=== PATIENT | male | born 1955 | race Asian ===

== ENCOUNTER 2017-09-12 16:09 | Emergency (ER) | payer MEDICARE, MEDICAID, SELFPAY ==
[2017-09-04 18:44] VITALS: TEMP 36.7
[2017-09-12 16:13] VITALS: BP 138/84; PULSE 110; RESP 18; TEMP 36.7; O2SAT 93; BMI 28.3
--- NOTE | 2017-09-12 16:50 | PC.NURSE ---
pt speaks mexican, daughter at bs. translating. reports, pt seen last week for migraine. pt s/p lumbar surgery past december, has rx for metocarbimol. till today pt with lower legs spasm , pt took 2 pills at 1246, then shortly after taking the medication, daughter described, seizure for 2 minutes on arrival pt alert and awake, now reports, frontal heaviness also back of neck, eyes heaviness, tiredness. denies nausea or vomiting. at time of event pt with blurry vision.
--- NOTE | 2017-09-12 16:59 | PC.NURSE ---
pt reports, left knee down to foot always has been numb since surgery. right foot with numbness. noted pt able to wiggle bilateral foot.
[2017-09-12 17:08] VITALS: BP 120/73; PULSE 97; RESP 24; O2SAT 94
[2017-09-12 18:16] VITALS: BP 122/73; PULSE 91; RESP 26; O2SAT 93
[2017-09-12 19:03] VITALS: BP 123/73; PULSE 97; RESP 16; O2SAT 95
--- NOTE | 2017-09-12 19:06 | DI.CT.S_ITS ---
PROCEDURE: CT HEAD/BRAIN WO CON INDICATIONS: seizure TECHNIQUE: Noncontrast 4.5 mm thick angled axial sections acquired from the foramen magnum to the vertex, with coronal and sagittal reformats. For radiation dose reduction, the following was used: automated exposure control, adjustment of mA and/or kV according to patient size. COMPARISON: None. FINDINGS: Image quality: Excellent. CSF spaces: Basal cisterns are patent. No extra-axial fluid collections. Ventricles are normal in size and shape. Brain: No midline shift. No intracranial masses or hemorrhage. Pepper-white matter interface is normal. Skull and face: Calvarium and visualized facial bones are intact, without suspicious lesions. Sinuses: Visualized sinuses and mastoids are clear. IMPRESSION: No acute intracranial findings. Dictated by: Barbara Bose M.D. on 09/12/2017 at 19:43 Approved by: Barbara Bose M.D. on 09/12/2017 at 19:46
--- NOTE | 2017-09-12 19:15 | ED_ITS ---
HPI - Seizure General Chief Complaint: Seizure Stated Complaint: SEIZURES History of Present Illness HPI Narrative: HPI 62-year-old male with history of lumbar pain status post surgery presents for evaluation of 2 seizure-like episodes that occurred at home. Patient reports that he has had headaches over last 3 to 4 days, was evaluated in this emergency department, had a unremarkable CT, tree with migraine cocktail, and discharged home with complete/near complete resolution of his headache. Today the patient felt mild discomfort (either headache versus low back pain, unclear ) and tried to methocarbamol that he had been prescribed from her prior back surgery. Sometime thereafter patient felt a spasming type pain in his leg was unable to bear weight, he then to the ground that had resolution of the spasm and continues to stay as normal. The patient was then witnessed by his daughter sometime (one hour?) later to become unresponsive for sitting on the edge of the bed, have diffuse tonic-clonic shaking of his extremities, head pastoring to the left, was unresponsive, minimally foaming/salivating, and fell to the side. The patient then rapidly regained consciousness but was confused for several minutes. Several hours later in the afternoon the patient's daughter heard a crashing sound to the ground and found her father slumped over his walker (which he uses due to baseline back pain and baseline - and unchanged - lower extremity weakness) unconscious on the floor again with mild salivation, the patient rapidly became conscious, was again anamnestic to events, and confused for several minutes. Patient and patient's daughter denies alcohol use , drug use, or further medications. M/S/F/SocHx notable for: please see HPI; remainder reviewed with patient and in chart. ROS: Negative constitutional, eye, cardiovascular, pulmonary, GI, , MSK, skin , neurologic, psychiatric, endocrine unless noted in the HPI. Exam Gen: Pleasant, non-toxic appearing, resting comfortably. HEENT: superficial abrasion below right chin, otherwise NC, AT, PEERL, EOMI. Resp: Clear to auscultation bilaterally, normal work of breathing, no accessory muscle usage. Card: Regular rate and rhythm with no murmurs, rubs, or gallops, extremities warm and well perfused. GI: Non-tender to palpation throughout all quadrants, no focal tenderness at McBurney's point, negative Beasley's sign, non-distended, no rebound or guarding. : No suprapubic tenderness to palpation. MSK: No visible deformities, strength and tone without visually appreciable deficit. No C, T, L spine tenderness palpation. Moving all extremities without appreciable deficit. Skin: Normal color with no visible lesions. Neuro: Gen AO x 3, no facial asymmetry, no gaze preference, no slurring of speech. Pupils equal and reactive, EOMI, no facial asymmetry, no nystagmus, phonation intact, SCM 5/5 bilaterally. Cerebellar: bilateral upper extremities without dysmetria. Psych: Mood and affect appropriate. Labs / Imaging: CT Head: pending. EKG: SR at [address]-segment elevations or depressions, T-wave inversions or new LBBB. CA interval 144msec, QTc 375msec, no delta waves, epsilon waves, coved or saddle ST-segment changes in leads V1-3, preseptal or inferior lead Q-waves, biphasic P-waves, or T-wave inversions; no LVH. Labs pending. MDM Previous chart, nursing note, labs, imaging, and vitals reviewed. A: 62-year-old male with history of lumbar pain status post surgery presents for evaluation of 2 seizure-like episodes that occurred at home. DDx & Evaluation: exam w/o evidence of meningitis, CT head pending, ekg without evidence of arrythmia. Labs and imaging pending. Patient care transferred to Dr. Shelton, the oncoming provider. Impression: suspected seizure. (please reference below for remainder of encounter information) Related Data Home Medications Medication Instructions Recorded Confirmed cyclobenzaprine 5 - 10 mg PO TID 09/12/17 09/12/17 ibuprofen 800 mg PO TID 09/12/17 09/12/17 methocarbamol 1 - 2 tab PO Q6H PRN 09/12/17 09/12/17 Allergies Allergy/AdvReac Type Severity Reaction Status Date / Time No Known Drug Allergies Allergy Verified 09/04/17 20:22 PFSH Social History Smoking Status: Never smoker Discharge Plan Departure Prescriptions: No Action cyclobenzaprine 5 mg tablet 5 - 10 mg PO TID RF: 0 ibuprofen 800 mg tablet 800 mg PO TID RF: 0 methocarbamol 500 mg Tablet 1 - 2 tab PO Q6H PRN (Reason: Muscle Spasm) RF: 0
[2017-09-12 20:00] VITALS: BP 131/76; PULSE 94; RESP 19; O2SAT 96
[2017-09-12 20:16] LABS: Add Manual Diff / Slide Review NO; Basophils Percent Auto 0.5 % (0-2); Hematocrit 42.3 % (41-53); Hemoglobin 14.7 g/dL (13.5-17.5); Lymphocytes Percent Auto 19.1 % (25-40); Mean Corpuscular HGB Conc 34.7 % (30-36); Mean Corpuscular Hemoglobin 32.1 PG (26-34); Mean Corpuscular Volume 92.4 fL (80-100); Monocytes Percent Auto 6.8 % (3-14); Neutrophils Absolute Auto 6400 /uL (3000-5900); Neutrophils Percent Auto 73.6 % (50-75); Platelet Count 236 X10^3/uL (150-400); Red Blood Cell Count 4.58 X10^6/uL (4.5-5.9); Red Cell Distribution Width 13.3 % (11.6-14.8); White Blood Cell Count 8.7 X10^3/uL (4.5-11.0)
[2017-09-12 20:27] LABS: BUN Creatinine Ratio 22.5 (6-22); Calcium 9.3 mg/dL (8.4-10.2); Estimated Glomerular Filt Rate > 60.0 mL/min (>60); Ethanol (ETOH) < 10 mg/dL; Glucose 130 mg/dL (80-110); HEMOLYSIS 75 (0-50); Magnesium 2.2 mg/dL (1.6-2.3); Potassium 4.1 mmol/L (3.4-5.1); Sodium 138 mmol/L (137-145)
[2017-09-12 20:40] LABS: Troponin I < 0.012 ng/mL (0.01-0.034)
[2017-09-12 20:58] LABS: Thyroid Stimulating Hormone 0.73 uIU/mL (0.47-4.68)
--- NOTE | 2017-09-12 21:02 | ED.SEIZURE ---
HPI - Seizure General Chief Complaint: Seizure Stated Complaint: SEIZURES Time Seen by Provider: 09/12/17 19:52 History of Present Illness HPI Narrative: This is in addition to note-- same visit. please see his note for HPI, ROS, EXAM. Related Data Home Medications Medication Instructions Recorded Confirmed cyclobenzaprine 5 - 10 mg PO TID 09/12/17 09/12/17 ibuprofen 800 mg PO TID 09/12/17 09/12/17 methocarbamol 1 - 2 tab PO Q6H PRN 09/12/17 09/12/17 Allergies Allergy/AdvReac Type Severity Reaction Status Date / Time No Known Drug Allergies Allergy Verified 09/04/17 20:22 PFSH Social History Smoking Status: Never smoker MDM - Seizure MDM Narrative Medical decision making narrative: Patient signed out to me by . A 62-year-old male with 2 seizure-like episodes today. He started taking methocarbamol for back spasms. Blood work head CT normal. Discussed results with patient and daughter of a agree with likely a medication reaction. Recommended to stop taking that medication. All questions have been answered. Differential Diagnosis Likely generalized seizure and new onset seizure Medical Records Attestation: I reviewed the patient's medical records. Lab Data Attestation: I reviewed the patient's lab results. Result diagrams: 09/12/17 20:05 09/12/17 20:05 Lab Results 09/12/17 09/12/17 09/12/17 Range/Units 20:05 20:05 20:05 WBC 8.7 (4.5-11.0) X10^3/uL RBC 4.58 (4.5-5.9) X10^6/uL Hgb 14.7 (13.5-17.5) g/dL Hct 42.3 (41-53) % MCV 92.4 (80-100) fL MCH 32.1 (26-34) PG MCHC 34.7 (30-36) % RDW 13.3 (11.6-14.8) % Plt Count 236 (150-400) X10^3/uL Neut % (Auto) 73.6 (50-75) % Lymph % (Auto) 19.1 L (25-40) % [place] % (Auto) 6.8 (3-14) % Eos % (Auto) 0.0 L (2-4) % Baso % (Auto) 0.5 (0-2) % Neut # (Auto) 6400 H (2457-4519) /uL Sodium 138 (137-145) mmol/L Potassium 4.1 (3.4-5.1) mmol/L Chloride 104.0 (98-107) mmol/L Carbon Dioxide 24.0 (22-32) mmol/L BUN 18.0 (9-20) mg/dL Creatinine 0.80 (0.66-1.25) mg/dL Estimated GFR > 60.0 (>60) mL/min BUN/Creatinine Ratio 22.5 H (6-22) Glucose 130 H (80-110) mg/dL Calcium 9.3 (8.4-10.2) mg/dL Magnesium 2.2 (1.6-2.3) mg/dL Troponin I < 0.012 (0.01-0.034) ng/mL TSH 0.73 (0.47-4.68) uIU/mL Ethyl Alcohol < 10 mg/dL Imaging Data CT scan - head: Radiologist's impression: PROCEDURE: CT HEAD/BRAIN WO CON INDICATIONS: seizure TECHNIQUE: Noncontrast 4.5 mm thick angled axial sections acquired from the foramen magnum to the vertex, with coronal and sagittal reformats. For radiation dose reduction, the following was used: automated exposure control, adjustment of mA and/or kV according to patient size. COMPARISON: None. FINDINGS: Image quality: Excellent. CSF spaces: Basal cisterns are patent. No extra-axial fluid collections. Ventricles are normal in size and shape. Brain: No midline shift. No intracranial masses or hemorrhage. Pepper-white matter interface is normal. Skull and face: Calvarium and visualized facial bones are intact, without suspicious lesions. Sinuses: Visualized sinuses and mastoids are clear. IMPRESSION: No acute intracranial findings. Dictated by: Barbara Bose M.D. on 09/12/2017 at 19:43 Discharge Plan Departure Patient Disposition: Home, Self-Care Clinical Impression: New onset seizure Discharge Date/Time: 09/12/17 21:15 Interventions: ED Discharge Assessment Last Done: 09/12/17 21:15 Instructions: DI for Seizure Disorder -- Adult Activity Restrictions/Additional Instructions: -do not drive for 6 months or until evaluation by Neurology *You have been diagnosed with seizure likely from medication *What to do: Stop taking methocarbamol *Take medications as directed *Follow up with your primary care provider in 2-3 days *Return to ER if you should have recurrent seizure, confusion any new, worsening or concerning symptoms Prescriptions: No Action cyclobenzaprine 5 mg tablet 5 - 10 mg PO TID RF: 0 ibuprofen 800 mg tablet 800 mg PO TID RF: 0 methocarbamol 500 mg Tablet 1 - 2 tab PO Q6H PRN (Reason: Muscle Spasm) RF: 0 Referrals: Marsha Sorensen PA-C [Primary Care Provider] -
[2017-09-12 21:15] VITALS: BP 150/69; PULSE 95; RESP 14; O2SAT 95
== END 2017-09-12 21:15 | disposition home or self-care (01) ==
PROVIDERS: Emergency Medicine; Emergency Provider Emergency Medicine; Family Provider Physician Assistant; PCP Physician Assistant
DX: R56.9 Unspecified convulsions (principal)
CPT/HCPCS: 36415; 70450; 80048; 80320; 82962; 83735; 84443; 84484; 85025; 93005; 99283; 99285